=== PATIENT | male | born 1975 | race Caucasian/White ===

== ENCOUNTER 2017-03-30 01:10 | Day surgery (SDC) | payer OTHER ==
[2017-03-30] VITALS (12 sets, daily range): BP systolic 103–132; BP diastolic 59–79; PULSE 48–64; RESP 14–16; O2SAT 93–95
[~2017-03-30] VITALS: Ht 188 cm; Wt 106.8 kg
[~2017-03-30 01:10] MED LIST: ASPI-973 PO; BUPR1FIL7 SL; LIP40 PO; PARO20TA57 PO
[2017-03-30] MEDS ORDERED: Sodium Chloride LOK Flush 10 mL Syringe IVFLUSH SCH (08:30)
[2017-03-30 10:11] LABS: BASOPHILS % (AUTO) 0.4 % (0-3); EOSINOPHILS % (AUTO) 3.8 % (0-5); MONOCYTES % (AUTO) 12.1 % (4-12); Mean Corpuscular Volume 82.2 fL (81-100); NEUTROPHILS % (AUTO) 55.5 % (40-74); Platelet Count 179 bil/L (150-400)
[2017-03-30] MEDS ORDERED: Heparin 1,000 Units/500 mL NS Premix IV ONE (10:35)
[2017-03-30] MEDS ORDERED: Heparin 1,000 Unit/mL 10 mL Inj ONE (10:35)
[2017-03-30] MEDS ORDERED: Nitroglycerin 50,000 mcg/250 mL D5W Premix IV ONE (10:35)
[2017-03-30] MEDS ORDERED: Heparin 10,000 Unit/1,000 mL NS Premix IV ONE (10:36)
--- NOTE | 2017-03-30 12:32 | PCM.CVCATH ---
Cardiac Cath Report Date of Service Mar 30, 2017 Primary Indication Abnormal stress test, chest pain Procedure coronary angiography, left heart cath Vascular Access Right radial artery using 5 Fr sheath, closure with TR band. Diagnostic Catheters Left main: successful engagement with JL3.5, 5Fr after unsuccessfully trying with [place] 4.5, 5 Fr RCA: [place] 4.5, 5 Fr Procedure Details Coronary angiography details: The patient was brought to the cardiac catheterization lab in the fasting state. Patient was laid supine on the cardiac catheterization table and the right forearm was prepped and draped in the usual sterile fashion. One percent Xylocaine was infiltrated over the right radial artery. Vascular access was then achieved under ultrasound guidance. Guide wire was used to advance the catheter through the sheath and up into aortic sinuses. After coronary angiography was completed, guide wire was advanced through the catheter ahead of the tip of the catheter and the guide wire along with the catheter were pulled together out of the sheath. Medications/Fluoro Time Medications administered: 1.Fentanyl: 0 mcg IV 2. Midazolam: 4 mg IV 3. Heparin: 5000 units IV 4. Nitroglycerin: 200 mcg IA Fluoroscopy Time: 928 mGy Contrast (Isovue): 50 mls Blood loss: 5 mls Findings 1) Coronary angiography: Right dominance a. Left main is short and angiographically normal b. LAD is angiographically normal c. LCx is angiographically normal d. RCA is dominant and angiographically normal 2) Left Heart catheterization: a. LVEDP is normal at 11 mmHg. b. No significant transaortic gradient on catheter pull-back. Complications There were no periprocedural complications identified. Summary Angiographically normal coronary arteries Recommendations Continue with primary prevention of coronary artery disease. copies to: Kamala Cabral MD, Bhrigu R MD Mar 30, 2017 12:32
--- NOTE | 2017-03-30 16:11 | NUR ---
Pt discharged to home, ambulatory, accompanied by family, IVs discontinued. Rt radial puncture site CDI with small stable hematoma, pt given all discharge instructions and follow up instructions. Pt had no further questions at time of d/c.
== END 2017-03-30 23:59 | disposition home or self-care (01) ==
LOC: SOUO 01:10
PROVIDERS: ATTEND Internal Medicine Cardiovascular Disease
DX: R94.39 Abnormal result of other cardiovascular function study (principal); R07.9 Chest pain, unspecified; R55 Syncope and collapse; F11.20 Opioid dependence, uncomplicated; Z72.0 Tobacco use; E78.5 Hyperlipidemia, unspecified
CPT/HCPCS: 36415; 80048; 85025; 85610; 93005; 93458; 99152; 99153; C1769; C1887; C1894; J1644; J2250; Q9967